=== PATIENT | female | born 1975 | race Caucasian/White ===

== ENCOUNTER 2023-10-18 22:26 | Emergency (ER) | payer OTHER ==
[~2023-10-18] VITALS: Ht 167.6 cm; Wt 72.6 kg
[2023-10-18 22:41] VITALS: BP 111/78; TEMP 98.6; O2SAT 97
[2023-10-18] MEDS ORDERED: OXYC-133 PO (23:53)
[2023-10-18] MEDS ORDERED: ONDA4TAB11 PO (23:53)
== END 2023-10-19 00:03 | disposition home or self-care (01) ==
LOC: ER 22:26
DX: S93.492A Sprain of other ligament of left ankle, initial encounter (principal); E03.9 Hypothyroidism, unspecified; Z60.2 Problems related to living alone; Z88.0 Allergy status to penicillin; Z88.2 Allergy status to sulfonamides; X58.XXXA Exposure to other specified factors, initial encounter; Y93.89 Activity, other specified; Y92.89 Other specified places as the place of occurrence of the external cause; Y99.8 Other external cause status
CPT/HCPCS: 73610-TC